=== PATIENT | male | born 1940 | race Caucasian/White ===

== ENCOUNTER → 2016-11-17 | Outpatient (CLI) | payer OTHER ==
[~2016-11-17] MED LIST: ACETAMINOPHEN-1 EAC1 PO; ACTOS15 MG PO; ACTOS45 MG PO; AMLODIPINE-BEN1 EAC3 PO; ASPIRIN E.C.81 M1 PO; CYANOCOBALAM1000 MCG PO; FOLIC ACID1 MG PO; GLIMEPIRIDE1 MG PO; GLUCOPHAGE XR750 MG PO; HYDRODIURIL,O12.5 M2 PO; JANUVIA25 M1 PO; LIPITOR20 MG PO; Lopid PO; Monopril PO; NEXIUM20 MG PO; NEXIUM40 MG PO; PLAVIX75 MG PO; Pletal PO; TOPROL XL50 MG PO; Toprol XL PO; VITAMIN D2000 UNIT PO
== END | disposition home or self-care (01) ==
DX: T17.920D Food in respiratory tract, part unspecified causing asphyxiation, subsequent encounter (principal); R93.3 Abnormal findings on diagnostic imaging of other parts of digestive tract
CPT/HCPCS: 92611 GN; G8996 GN; G8997 GN; G8998 GN